=== PATIENT | male | born 1970 | race Caucasian/White ===

== ENCOUNTER 2016-04-25 13:24 | Emergency (ER) | payer SELFPAY ==
[2016-04-25 13:50] VITALS: BP 130/89
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
--- NOTE | 2016-04-25 15:15 | ERNOTE ---
Lower Extremity HPI - Narrative Date of Service: 04/25/16 - General Lower Extremities Pain: knee: left Time Seen by Provider: 04/25/16 13:56 Source: patient Exam Limitations: no limitations - Immun/Allergies/Home Medications Immunizations: IMMUNIZATION HX Immunizations Up to Date Yes History of Influenza Vaccine No Hx Pneumococcal Vaccination More Information Required Allergies/Adverse Reactions: Allergies Allergy/AdvReac Type Severity Reaction Status Date / Time meperidine [Meperidine] Allergy Severe Anaphylaxis Verified 12/19/12 11:50 Home Medications: HOME MEDICATIONS Naproxen [Naprosyn] 500 mg PO BID PRN #60 tab 04/25/16 [Last Taken Unknown] - History of Present Illness Narrative: Pt. comes in with c/o L knee pain after he was walking in sand yesterday and his knee gave out and he twisted it. Pt. denies any numbness or tingling but does states that he has popping, clicking, and is unable to ambulate on the knee. Pt. denies any prehospital treatment or alleviating factors. Review of Systems - Review of Systems Constitutional: Present: no symptoms reported. Absent: fever, chills, weakness , fatigue, malaise EYE: Present: no symptoms reported ENT: Present: no symptoms reported Respiratory: Present: no symptoms reported. Absent: shortness of breath, cough , wheezing Cardiology: Present: no symptoms reported. Absent: chest pain, palpitations, edema Gastrointestinal/Abdominal: Present: no symptoms reported Genitourinary: Present: no symptoms reported Musculoskeletal: Present: joint pain - L lateral knee, inside of knee. Absent: back pain Skin: Present: no symptoms reported. Absent: rash, dryness, lesions, lumps, change in color Neurological: Present: no symptoms reported. Absent: headache, dizziness/light- headedness, weakness, numbness, tingling Endocrine: Present: no symptoms reported Hematologic/Lymphatic: Present: no symptoms reported All Other Systems: All systems neg except as marked - Patient's Past Medical History Patient History - Medical: No pertinent hx Patient History - Cardiac/Respiratory: No pertinent hx Patient History - Cancer: No Hx of Cancer Patient History - Surgical Procedures: No surgical history Patient History - Other: None - Social History Living Situations: home Psych History: No pertinent hx Smoking Status: Current every day smoker Have you smoked in the past 12 months: Yes Do you dip or chew tobacco: No - Immunizations Immunizations Up to Date: Yes Hx Pneumococcal Vaccination: More Information Required to Determine History of Influenza Vaccine: No Physical Exam - Physical Exam General Appearance: Present: wd/wn, alert, no apparent distress Eye Exam: Normal inspection: bilateral, PERRL: bilateral, EOMI: bilateral Ears, Nose, Throat: Present: normal ENT inspection, normal pharynx Neck: Present: normal inspection, nontender. Absent: lymphadenopathy (R), lymphadenopathy (L) Respiratory: Present: no respiratory distress, normal breath sounds, no accessory muscle use, chest nontender, lungs clear Cardiovascular/Chest: Present: regular rate, rhythm, no murmur, normal peripheral pulses Back Exam: Present: normal inspection Extremity Exam: Present: decreased range of motion, other - lateral distal quad tendon attachment posint tenderness, crepitus with ROM. Absent: calf tenderness , bony tenderness Neurological Exam: Present: alert, oriented, normal mood/affect, no motor/ sensory deficits Skin Exam: Present: normal color, warm/dry. Absent: pallor, skin rash ED Progress - Date and Time Seen: Date and Time: 04/25/16 15:08 Feel that pt. does not need to follow up in the next couple of days but does need referral to ortho for evaluation of L knee as I feel this is likely meniscal injuy and distal quadriceps injury so will place in immobilizer and have pt. follow up next week. - Vital Signs Patient's Vital Signs:: I have reviewed the patient's vital signs. Vital Signs: Vital Signs 04/25/16 13:39 Temperature 36.7 C Pulse Rate 94 Respiratory 18 Rate Blood Pressure 130/89 O2 Sat by Pulse 96 Oximetry - X-Ray X-Ray #1 X-Ray: knee Interpretation: Reviewed by me X-ray Comments: slight lateral dislocation of knee cap. no fracture - Progress/Reassessment Chief Complaint: Lower Extremity Pain/ Injury Progress:: Unchanged Departure Clinical Impression: Knee strain Qualifiers: Encounter type: initial encounter Laterality: left Qualified Code(s): S86.912A - Strain of unspecified muscle(s) and tendon(s) at lower leg level, left leg, initial encounter - Departure Disposition: Home self-care Condition: Good Instructions: Form - Excuse from Work, School, or Physical Activity, Tendon Injury Additional Instructions: Please follow up with orthopedics as scheduled next week. Referrals: WengerKeller,Brendan, MD [Primary Care Provider] - Prescriptions: Naproxen [Naprosyn] 500 mg PO BID PRN #60 tab PRN Reason: Pain
== END 2016-04-25 15:15 | disposition home or self-care (01) ==
LOC: ER 13:24
PROC: 2W3MX3Z Immobilization of Left Lower Extremity using Brace (ICD-10-PCS; principal; 2016-04-25)
DX: S86.912A Strain of unspecified muscle(s) and tendon(s) at lower leg level, left leg, initial encounter (principal); Z72.0 Tobacco use; X58.XXXA Exposure to other specified factors, initial encounter; Y93.9 Activity, unspecified

== ENCOUNTER 2018-01-20 13:00 | Observation (INO) ==
[2018-01-20] MEDS ORDERED: MORPHINE SULFATE 4 MG/ML SYRG IV ONE (13:25)
[2018-01-20] MEDS ORDERED: ONDANSETRON HCL/PF 2 MG/ML VIAL IV ONE (13:25)
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
[2018-01-20] MEDS ORDERED: NORMAL SALINE 1,000 ML IV PRN (13:34)
[2018-01-20 13:49] LABS: Hemoglobin 13.8 gm/dL (13.5-18.0); Mean Cell Volume 89.9 fl (78-100); Mean Corpuscular Hemoglobin 29.6 pg (27-31); Mean Corpuscular Hgb Conc 32.9 g/dl (32-36); Mean Platelet Volume 9.8 fl (8-11.3); Neutrophil # 12.1 K/mm3 (1.3-6.0); Neutrophil % 79.8 % (42-75.0); Platelet Count 338 K/mm3 (150-450); Red Blood Count 4.67 M/mm3 (4.7-6.0); Red Cell Distribution Width 13.5 % (11.5-14.0); White Blood Count 15.2 K/mm3 (4.0-10.5)
[2018-01-20 14:01] LABS: Albumin * 2.5 gm/dl (3.4-5.0); Anion Gap 8.7 mmol/L (6.8-13.8); BUN/Creatinine Ratio 16.1 (9.0-21.6); Bilirubin, Total 0.2 mg/dL (0.0-1.1); Ca. Corrected For Albumin 10.4 mg/dL (8.4-10.2); Calcium * 9.5 mg/dL (7.9-10.9); Carbon Dioxide 31.6 mmol/L (24-32.6); Magnesium 1.7 mg/dL (1.2-2.8); Potassium 4.3 mmol/L (3.4-4.6); Total Protein 7.7 gm/dL (6.2-8.2)
[2018-01-20 14:15] LABS: CRP 37.8 mg/dL (0.0-0.9)
[2018-01-20] MEDS ORDERED: VANCOMYCIN HCL 1 GM in DEXTROSE 5 % IN WATER 250 ML IV ONE ×2 (14:19)
[2018-01-20] MEDS ORDERED: IBUPROFEN 400 MG TABLET PO ONE (14:19)
[2018-01-20] MEDS ORDERED: HYDROmorphone HCL 1 MG/ML DISP.SYRIN IV ONE (14:19)
[2018-01-20] MEDS: VANCOMYCIN HCL 1.5 GM in DEXTROSE 5 % IN WATER 500 ML IV SCH ×2 (16:12)
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
[2018-01-20] MEDS ORDERED: ENOXAPARIN SODIUM 40 MG/0.4 ML SYRG SC SCH (17:45)
[2018-01-20] MEDS ORDERED: NICOTINE 14 MG PATC TD SCH (17:45)
[2018-01-20] MEDS: ACETAMINOPHEN 500 MG TABLET PO PRN (18:33)
[2018-01-20] MEDS: HYDROmorphone HCL 1 MG/ML DISP.SYRIN IV PRN ×2 (18:34→22:58)
[2018-01-20] MEDS: NAPROXEN 375 MG TABLET PO SCH (20:30)
[2018-01-21] MEDS: ACETAMINOPHEN 500 MG TABLET PO PRN ×2 (02:18→09:07)
[2018-01-21] MEDS: HYDROmorphone HCL 1 MG/ML DISP.SYRIN IV PRN ×3 (02:59→11:40)
[2018-01-21] MEDS: VANCOMYCIN HCL 1.5 GM in DEXTROSE 5 % IN WATER 500 ML IV SCH ×2 (03:01)
[2018-01-21 05:42] LABS: Hematocrit 37.4 % (42.0-52.0); Hemoglobin 12.1 gm/dL (13.5-18.0); Mean Cell Volume 90.6 fl (78-100); Mean Corpuscular Hemoglobin 29.3 pg (27-31); Mean Corpuscular Hgb Conc 32.4 g/dl (32-36); Mean Platelet Volume 9.8 fl (8-11.3); Neutrophil # 10.7 K/mm3 (1.3-6.0); Neutrophil % 81.2 % (42-75.0); Platelet Count 307 K/mm3 (150-450); Red Blood Count 4.13 M/mm3 (4.7-6.0); Red Cell Distribution Width 13.6 % (11.5-14.0); White Blood Count 13.2 K/mm3 (4.0-10.5)
[2018-01-21] MEDS: NAPROXEN 375 MG TABLET PO SCH (09:06)
--- NOTE | 2018-01-21 13:16 | DS ---
(1) Cellulitis of right lower limb Problem: Acute (2) Dehydration, moderate Problem: Resolved Description of Stay: 48-year-old male with past medical history of left shoulder fusion due to rotator cuff tear complicated by MRSA infection, was admitted to [facility] for outpatient observation for right lower extremity cellulitis. Patient was treated with outpatient oral antibiotics but failed the treatment, the infection worsened causing significant pain limiting his mobility. Patient also experienced multiple episodes of fever and chills and did not feel well. He was admitted for treatment with IV antibiotics and IV hydration, follow-up labs from this morning revealed improvement of his leukocytosis and left shift and patient's right lower extremity is less erythematous and less tender. Therefore, he is being discharged home with a prescription of oral antibiotics and instructions to follow-up with his PCP in 1 week. Procedures Performed: none Results and Findings: Lab Pending Results 01/20/18 13:40: WBC 15.2 H D, RBC 4.67 L, Hgb 13.8, Hct 42.0, MCV 89.9, MCH 29.6, MCHC 32.9, RDW 13.5, Plt Count 338, MPV 9.8, Immature Gran % (Auto) 0.50 H, Immature Gran # (Auto) 0.07 H, Neutrophils % 79.8 H, Lymphocytes % 11.3 L, Monocytes % 7.6, Eosinophils % 0.5, Basophils % 0.3, Nucleated RBC % 0.0, Neutrophils # 12.1 H, Lymphocytes # 1.71, Monocytes # 1.2 H, Eosinophils # 0.1, Absolute Basophils 0.0 01/20/18 13:40: Sodium 135, Plasma Sodium 135, Potassium 4.3, Chloride 99, Carbon Dioxide 31.6, Anion Gap 8.7, BUN 15, Creatinine 0.93, Est GFR (Non-Af Amer) 93, BUN/Creatinine Ratio 16.1, Random Glucose 96, Calcium 9.5, Calcium Adj for Albumin 10.4 H, Magnesium 1.7, Total Bilirubin 0.2, AST 13, ALT 20, Alkaline Phosphatase 83, C-Reactive Prot, Quant 37.8 H, Total Protein 7.7, Albumin 2.5 L 01/20/18 13:40: ESR 98 H 01/20/18 13:40: Lactic Acid, Venous 1.0 11/28/18 05:05: WBC 13.2 H, RBC 4.13 L, Hgb 12.1 L, Hct 37.4 L, MCV 90.6, MCH 29.3, MCHC 32.4, RDW 13.6, Plt Count 307, MPV 9.8, Immature Gran % (Auto) 0.50 H, Immature Gran # (Auto) 0.06 H, Neutrophils % 81.2 H, Lymphocytes % 9.8 L, Monocytes % 7.4, Eosinophils % 0.9, Basophils % 0.2, Nucleated RBC % 0.0, Neutrophils # 10.7 H, Lymphocytes # 1.30 L, Monocytes # 1.0, Eosinophils # 0.1, Absolute Basophils 0.0 Discharge Location: Home Disposition: Home self-care Condition: Fair Discharge Activity: Activity as tolerated Discharge Diet: General/regular food Referrals: Brendan Schwarz MD [Primary Care Provider] - Prescriptions (Any new or edited meds): Sulfamethoxazole/Trimethoprim [Bactrim] 160 tab PO BID 10 Days #20 tablet Tramadol HCl [Rybix Odt] 50 mg PO TID PRN 5 Days #15 tab.rapdis PRN Reason: Pain Complete Home Medications List: Complete Home Medication List: Naproxen [Naprosyn] 375 mg PO BID #30 tab 01/16/18 Sulfamethoxazole/Trimethoprim [Bactrim] 160 tab PO BID 10 Days #20 tablet 01/21/18 Tramadol HCl [Rybix Odt] 50 mg PO TID PRN 5 Days #15 tab.rapdis 01/21/18
[2018-01-21 14:34] VITALS: BP 135/75
[2018-01-21] MEDS ORDERED: REMOVE PATCH 1 PATCH PATCH TP SCH (17:45)
== END 2018-01-21 14:45 | disposition home or self-care (01) ==
LOC: ER 13:00 → MS 13:00
PROVIDERS: ADMIT Family Medicine; ATTEND Family Medicine
CPT/HCPCS: 36415; 80053; 83605; 83735; 85025; 85652; 86140; 87040; 87081; 96361; 96365; 96366; 96372; 96375; 96376; 99283; G0378; J2405